=== PATIENT | male | born 1945 | race Caucasian/White ===

== ENCOUNTER → 2018-06-28 | Outpatient (CLI) | payer MEDICARE ==
[2018-06-28 17:15] LABS: HCT 39.5 % (39.0-53.0); HGB 13.1 gm/dL (13.0-17.5); MCH 29.1 pg (25.0-35.0); MCHC 33.1 g/dL (31.0-37.0); MCV 88.1 fL (80.0-100.0); Mean Platelet Volume 7.9; Platelet Count 229 k/uL (150-450); RBC 4.48 m/uL (4.30-5.90); RDW 13.1 % (11.5-15.5); WBC 8.4 k/uL (3.8-10.6)
[2018-06-28 17:22] LABS: INR 1.1 (<1.2); Partial Thromboplastin Time 25.2 sec (22.0-30.0); Prothrombin Time 10.6 sec (9.0-12.0)
[2018-06-28 17:34] LABS: Albumin 4.1 g/dL (3.5-5.0); Appearance,Urine Clear (Clear); Bilirubin,Urine Negative (Negative); Blood,Urine Negative (Negative); Calcium 9.7 mg/dL (8.4-10.2); Color,Urine Yellow; Glucose,Urine (UA) Negative (Negative); Ketones,Urine Negative (Negative); Leukocyte Esterase,Urine Negative (Negative); Nitrite,Urine Negative (Negative); Protein,Urine Negative (Negative); Specific Gravity,Urine 1.013 (1.001-1.035); Total Bilirubin 0.5 mg/dL (0.2-1.3); Total Protein 7.3 g/dL (6.3-8.2); Urobilinogen,Urine <2.0 mg/dL (<2.0)
== END | disposition home or self-care (01) ==
LOC: LABPAT 16:26
PROVIDERS: ATTEND Orthopaedic Surgery
DX: Z01.812 Encounter for preprocedural laboratory examination (principal); Z51.81 Encounter for therapeutic drug level monitoring; Z79.01 Long term (current) use of anticoagulants
CPT/HCPCS: 36415; 80053; 81003; 85027; 85610; 85730; 87070

== ENCOUNTER 2018-07-09 09:32 | Inpatient (IN) | payer MEDICARE ==
[2018-07-02 16:14] VITALS: BMI 30.7
[~2018-07-09 09:32] MED LIST: ACETAMINOPHEN TAB 500 MG TAB PO ONE; DEXAMETHASONE SOD PHOSPHATE 10 MG/ML 1 ML VIAL IV ONE; LACTATED RINGERS 1,000 ML IV SCH; ONDANSETRON 4 MG/2 ML VIAL IVP ONE; TRANEXAMIC ACID 1,000 MG in SODIUM CHLORIDE 0.9% 50 ML IVPB ONE; ceFAZolin IN SWFI 2 GM/20 ML SYRINGE IVP ONE
[2018-07-09] MEDS ORDERED: ROPIVACAINE 246.25 MG, EPINEPHrine 0.5 MG, KETOROLAC 30 MG, cloNIDine HCL/PF 80 MCG, WA... MISCELLANE ONE ×5 (12:54)
[2018-07-09] MEDS ORDERED: LIDOCAINE 1% 20 ML VIAL (10MG/ML) FOR IV START INTRADERMA ONE (13:00)
[2018-07-09] MEDS ORDERED: SODIUM CHLORIDE 0.9% 100 ML BAG ONE (13:36)
[2018-07-09] MEDS ORDERED: fentaNYL (PF) 50 MCG/ML 2 ML AMP ONE (13:36)
[2018-07-09] MEDS ORDERED: GLYCOPYRROLATE 0.2 MG/ML 2 ML VIAL ONE (13:36)
[2018-07-09] MEDS ORDERED: PROPOFOL 10 MG/ML 20 ML VIAL IV ONE (13:36)
[2018-07-09] MEDS ORDERED: TRANEXAMIC ACID 1,000 MG/10 ML VIAL ONE (13:36)
[2018-07-09] MEDS ORDERED: MIDAZOLAM 2 MG/2 ML VIAL ONE (13:36)
[2018-07-09] MEDS ORDERED: ePHEDrine SULFATE/0.9% NACL/PF 50 MG/5 ML SYRINGE IV ONE (13:36)
[2018-07-09] MEDS ORDERED: ceFAZolin 3,000 MG in SODIUM CHLORIDE 0.9% IRRIGATIO 3,000 ML IRRIGATION ONE (14:14)
[2018-07-09] MEDS ORDERED: LACTATED RINGERS 1,000 ML IV ONE (14:14)
[2018-07-09] MEDS ORDERED: HYDROmorphone 1 MG/ML 1 ML SYRINGE IVP PRN ×3 (15:43)
[2018-07-09] MEDS ORDERED: NALOXONE 0.4 MG/ML 1 ML VIAL IV PRN ×2 (15:43→15:50)
[2018-07-09] MEDS ORDERED: NA PHOS,M-B/NA PHOS,DI-BA 133 ML ENEMA RECTAL PRN (15:50)
[2018-07-09] MEDS ORDERED: BISACODYL 10 MG SUPP RECTAL PRN (15:50)
[2018-07-09] MEDS ORDERED: HYDROcodone/APAP 7.5-325MG 1 EACH TAB PO PRN (15:50)
[2018-07-09] MEDS: HYDROmorphone 0.5 MG/0.5 ML SYRINGE IVP PRN ×4 (15:50→16:25)
[2018-07-09] MEDS ORDERED: MAGNESIUM HYDROXIDE 2,400 MG/10 ML CUP PO PRN (15:50)
[2018-07-09] MEDS ORDERED: ONDANSETRON 4 MG/2 ML VIAL IVP PRN (15:50)
--- NOTE | 2018-07-09 16:34 | XR ---
PROCEDURE: XR knee limited RT - 2V DATE AND TIME: 07/09/2018 4:26 PM CLINICAL INDICATION: Evaluation for Postop abnormality and alignment TECHNIQUE: AP, and crosstable lateral views. COMPARISON: None FINDINGS: Post-TKR study, the prosthesis appears normally aligned. No periprosthesis lucency. Postprocedural changes are noted, no unexpected findings.. IMPRESSION: Postoperative.
[2018-07-09 16:36] VITALS: RESP 16
[2018-07-09] MEDS ORDERED: WARFARIN 5 MG TAB PO ONE (18:00)
[2018-07-09] MEDS: LACTATED RINGERS 1,000 ML IV SCH (18:15)
--- NOTE | 2018-07-09 18:18 | P.OP ---
Date of Procedure: 07/09/18 Procedure(s) Performed: PREOPERATIVE DIAGNOSIS: Right knee severe osteoarthritis with genu varum POSTOPERATIVE DIAGNOSIS: Right knee severe osteoarthritis with genu varum OPERATION: Right knee cemented total replacement arthroplasty. ANESTHESIA: Spinal ESTIMATED BLOOD LOSS: 100 ml. RUG HOOKER HAND: Latasha Alvarez PA-C (assistance with: patient positioning, retraction, exposure, hemostasis, leg positioning, implantation, irrigation, closure, dressing) COMPLICATIONS: None apparent. COMPONENTS IMPLANTED: Persona system from [employer] INDICATIONS: Mr. Love is a 73-year-old male with a history of right knee osteoarthritis. The patient's knee is end-stage, and conservative management has failed. The operation of knee replacement has been discussed at length in the office, as well as potential risks and complications. These are inclusive of, but not limited to: bleeding, infection, scarring, discomfort, blood vessel and nerve damage, need for further surgery, failure to relieve symptoms, persistence, recurrence, or worsening of problems, loosening, dislocation, wear , blood clot, pulmonary embolism, , gait dysfunction, stiffness, and other risks as discussed in the office. The patient elects to proceed and the consent form has been signed. PROCEDURE: The patient was taken to the operating room and positioned on the operating room table in the supine position. Anesthesia was initiated. Care was taken to make sure that all pressure points were adequately padded. The operative lower extremity was prepped and draped in the usual aseptic fashion using ChloraPrep. Ioban drape was used for the case and the patient received intravenous antibiotics within one hour of the incision. A pneumotourniquet and leg boyce were used for the case. The limb was exsanguinated with an Esmarch bandage and the tourniquet was inflated to 350 mmHg. Time-out was called confirming the patient's identity, side, procedure and administration of antibiotics and tranexamic acid. The incision was then created midline directly over the knee, carried down through skin and into the subcutaneous tissues and down to fascia. Full thickness subcutaneous medial flap was developed. Medial parapatellar arthrotomy was performed and the interior of the knee was inspected. There was end-stage osteoarthritis of the knee with a mild to moderate genu varum type deformity. The fat pad was excised and proximal medial release on the tibia was completed using meticulous dissection and a curved osteotome. The anterior cruciate ligament was taken down. Note was made of significant attrition of the anterior and significant degenerative appearance of the cruciate ligaments. The exposure was excellent. The knee was flexed 90 degrees and the patella was everted. A spot was chosen on the femur approximately 1 cm anterior to the posterior cruciate ligament insertion and an intramedullary hole was created within the femur. The intramedullary guide was then set to 5 degrees of valgus. The distal cutting block was attached and pinned into position. An appropriate amount of distal femoral resection was set. The oscillating saw was then used to make the distal femoral cut. This cut was confirmed to be flat with the flat end of an osteotome. The retractors were placed around the tibia and the tibial surface was addressed. The angle and depth of resection was adjusted using an extramedullary cutting guide. The guide had a built-in 3 degree posterior slope cut. Once the cutting guide was adjusted appropriately and in line with the axis of the tibia and confirmed to be in good position in relation to the second metatarsal and transmalleolar axis, the tibial cut was then created with protection of the posterior neurovascular structures and the collateral ligaments. The tibial cut surface was removed and sized. Femoral sizing was then accomplished using anterior referencing. Care was taken to analyze the posterior condyles for signs of deficiency or severe wear, and adjustments to the guide were made, as appropriate. 3 degree external rotation pins were placed. The cutting jig for the femur was applied to these pins. The planned cuts were further analyzed prior to performing them with the oscillating saw. No femoral notching was produced. Bone fragments were removed and the cut surfaces were finished, as necessary, with a reciprocating saw. Spacer block technique was then used to confirm that the flexion and extension gaps were equal. Soft tissue releases and adjustment of the tibial and/or femoral cuts were made, as necessary, until the gaps were equal. This included release of the posterior cruciate ligament, which was excessively tight in this patient. The femur was then further finished for a posterior cruciate ligament substituting component. Patellar resurfacing was performed using a reamer. The size of the required patellar component was estimated and the patellar surface was then reamed down to a residual thickness which would recreate the [place] thickness with the component. The exact placement of the patellar component was adjusted for position based on preoperative x-rays and intraoperative findings. Prior to placing trial components, anesthetic solution consisting of ropivicaine with epinephrine, ketorolac, and clonidine was injected carefully and methodically in a grid pattern using aspiration technique into the soft tissue around the knee circumferentially, starting with the deeper tissues first and progressing to fascia, and then finally the skin/subcutaneous tissue. Particular care was taken when injecting the posterior capsule. The trial components were inserted. The tibial tray was allowed to self center and the patella was noted to track very well. The position of the tibial component was marked and the tibia was then finished for a stemmed tibial component. Cement was mixed on the back table and applied to the final components. Trial components were removed and the cut surfaces of the bone were pulse lavaged thoroughly and dried. Cement was then applied to the tibial surface and pressurized into the surface using finger pressurization technique. The tibial component was then applied and excess cement was removed after it was impacted securely and noted to be flush with the cut surface. In similar fashion, the cement was applied to the cut femoral surface, pressurized in using finger pressurization and the component was impacted into place. Excess cement was removed. The polyethylene spacer was then implanted and locked into position. The patellar component was then applied in similar technique and a patellar clamp was used to hold the patella in place as the cement hardened. Once the cement had fully hardened, the knee was reinspected. Any other cement extrusion was removed and final kinematic testing showed range of motion from 0 to 130 degrees with excellent stability, both medially and laterally and appropriate alignment of the leg. Patellar tracking was excellent. The knee was then thoroughly pulse lavaged with normal saline. The tourniquet was deflated and hemostasis was obtained with electrocautery and IV tranexamic acid, 1 g given at the start of the operation and 1 g at the start of closure. Closure was with #2 Ethibond in the fascia/capsule and supplemented with #2 Quill, 2-0 Vicryl suture was used for the subcutaneous tissues and 3-0 Quill for the skin. Dermabond/Steri-Strips were then applied. A lightly compressive dressing was applied using Webril and an [place] wrap. The patient was then transferred to stretcher and taken to the recovery room in stable condition. Sponge and needle counts were correct.
[2018-07-09] MEDS ORDERED: hydrALAZINE HCL 20 MG/ML 1 ML VIAL IVP PRN (20:45)
[2018-07-09] MEDS: ceFAZolin IN SWFI 2 GM/20 ML SYRINGE IVP SCH (20:48)
[2018-07-09] MEDS ORDERED: SENNOSIDES-DOCUSATE SODIUM 1 EACH TAB PO SCH (21:00)
[2018-07-09] MEDS ORDERED: TEMAZEPAM 15 MG CAP PO PRN (22:00)
--- NOTE | 2018-07-09 22:18 | CONS ---
CONSULTATION REASON FOR CONSULTATION: Advice regarding hypertension and other medical issues, requested by Dr. Fuchs. HISTORY OF PRESENT ILLNESS: This 73-year-old gentleman with a past medical history of hypertension, hyperlipidemia, history of DJD, history of psoriatic arthritis, history of MRSA, underwent right total knee joint arthroplasty for severe DJD by Dr. Fuchs. The blood pressure was slightly elevated postoperatively; otherwise there is no chest pain, no palpitations, no headache, loss of consciousness, nausea, vomiting, diarrhea, fever, rigor or chills. PAST MEDICAL HISTORY: 1. Hypertension. 2. Hyperlipidemia. 3. History of DJD. 4. History of GERD. HOME MEDICATIONS: 1. Pravachol 20 mg p.o. daily. 2. Omeprazole 20 mg daily. 3. Multivitamins 1 p.o. daily. 4. Fish oil 1 p.o. daily. 5. Vitamin D3 2000 daily. 6. Ecotrin 81 mg p.o. daily. 7. Humira 40 mg subcutaneously for 14 days. 8. Coumadin 2.5 mg daily. 9. Senokot S one tablet p.o. b.i.d. 10.Olin 7.5 q.6 p.r.n. ALLERGIES: NONE. FAMILY HISTORY: No history of heart disease or strokes in the family. SOCIAL HISTORY: Previous history of smoking. No current smoking or alcohol intake. REVIEW OF SYSTEMS: ENT: No diminished hearing. No diminished vision. CARDIOVASCULAR SYSTEM: No angina, palpitations. RESPIRATORY SYSTEM: As mentioned earlier. GI: No nausea, vomiting. : No dysuria or retention. NERVOUS SYSTEM: No numbness, weakness. ALLERGY/IMMUNOLOGY: No asthma, hayfever. MUSCULOSKELETAL: As mentioned earlier. HEMATOLOGY/ONCOLOGY: No history of anemia. ENDOCRINE: No history of diabetes, hypothyroidism. CONSTITUTIONAL: As mentioned earlier. DERMATOLOGY: Negative. RHEUMATOLOGY: Negative. PSYCHIATRY: As mentioned earlier. PHYSICAL EXAMINATION: Patient is alert and oriented x3. Pulse 63, blood pressure 140/71, respirations 16, temperature normal, pulse ox 94% on 3 L. HEENT: Conjunctivae normal. Oral mucosa moist. NECK: No jugular venous distention. No carotid bruit. No lymph node enlargement. CARDIOVASCULAR SYSTEM: S1, S2 muffled. RESPIRATORY SYSTEM: Breath sounds diminished at the bases. No rhonchi. No crackles. ABDOMEN: Soft, non-tender. LEGS: Status post right knee arthroplasty. NERVOUS SYSTEM: No focal deficit. LABS: The preoperative labs are normal. Other labs are not available. ASSESSMENT: 1. Status post right total knee joint arthroplasty. 2. History of gastroesophageal reflux disease. 3. Hypertension. 4. Hyperlipidemia. 5. Psoriatic arthropathy. 6. History of methicillin-resistant Staphylococcus aeruginosa. 7. History of back surgery. 8. Degenerative joint disease. RECOMMENDATIONS AND DISCUSSION: In this 73-year-old gentleman with a past medical history of multiple medical problems, we will monitor the patient closely, continue the current medications, continue with symptomatic treatment. Otherwise at this time I would recommend resuming the home medications. Monitor blood pressure closely. Incentive spirometry. DVT prophylaxis. We will follow the patient closely with you. Thank you, Dr. Fuchs, for letting us participate in the care of this patient. Home medications are reviewed and ordered. MMODL / IJN: [id number] /
[2018-07-10] MEDS: HYDROcodone/APAP 7.5-325MG 1 EACH TAB PO PRN ×2 (01:19→12:16)
[2018-07-10] MEDS: LACTATED RINGERS 1,000 ML IV SCH ×2 (04:57→08:16)
[2018-07-10] MEDS: ceFAZolin IN SWFI 2 GM/20 ML SYRINGE IVP SCH (04:57)
[2018-07-10 07:30] LABS: Basophils % (A) 0 %; Eosinophils % (A) 0 %; HCT 35.9 % (39.0-53.0); HGB 11.9 gm/dL (13.0-17.5); Lymphocytes # (A) 1.4 k/uL (1.0-4.8); Lymphocytes % (A) 11 %; MCH 29.2 pg (25.0-35.0); MCHC 33.2 g/dL (31.0-37.0); MCV 88.2 fL (80.0-100.0); Mean Platelet Volume 8.5; Monocytes # (A) 0.8 k/uL (0-1.0); Monocytes % (A) 6 %; Neutrophils # (A) 10.4 k/uL (1.3-7.7); Neutrophils % (A) 81 %; Platelet Count 188 k/uL (150-450); RBC 4.07 m/uL (4.30-5.90); RDW 13.1 % (11.5-15.5); WBC 12.8 k/uL (3.8-10.6)
[2018-07-10] MEDS ORDERED: PANTOPRAZOLE 40 MG TABLET PO SCH (07:30)
[2018-07-10 07:39] LABS: INR 1.2 (<1.2); Prothrombin Time 11.2 sec (9.0-12.0)
[2018-07-10] MEDS ORDERED: PRAVASTATIN SODIUM 20 MG TAB PO SCH (09:00)
[2018-07-10] MEDS ORDERED: CHOLECALCIFEROL 1,000 UNIT TAB PO SCH (09:00)
[2018-07-10] MEDS ORDERED: ASPIRIN 81 MG PO SCH (09:00)
[2018-07-10] MEDS ORDERED: LOSARTAN 50 MG TAB PO SCH (09:00)
--- NOTE | 2018-07-10 11:43 | P.DS ---
Providers Date of admission: 07/09/18 11:49 Expected date of discharge: 07/10/18 Attending physician: Mando Fuchs Consults: 07/09/18 15:50 Consult Physician Routine Consulting Provider: Antoine Green Consult Reason/Comments: Medical management Do you want consulting provider notified?: Yes Primary care physician: Nemesio Clemens - Discharge Diagnosis(es) (1) Osteoarthritis of right knee Current Visit: Yes Status: Acute (2) Status post total right knee replacement Current Visit: Yes Status: Acute Hospital Course: This is a 73-year-old male who was last seen with complaint of continued right knee pain. The patient has a known history of degenerative arthritis of the right knee and presents to discuss surgical options. After discussion and consideration the patient elects to proceed with total right knee arthroplasty. The patient is seen preoperatively by his primary care physician and cleared for surgery. The patient is admitted to [facility] for total right knee arthroplasty. The procedures performed without complication or sequelae. Patient is doing well postoperatively. Vital signs are stable at discharge. Labs are stable at discharge. the patient is ambulating well with walker with minimal assistance. The patient is discharged to home on postop day #1 pending medical clearance. Please see orders and refer to the med rec for accurate list of medications. Patient Condition at Discharge: Good Plan - Discharge Summary Discharge Rx Participant: No New Discharge Prescriptions: New HYDROcodone/APAP 7.5-325MG [[place] 7.5-325] 1 - 2 tab PO Q4-6H PRN #84 tab PRN Reason: Pain Sennosides-Docusate Sodium [Senokot-S] 1 tab PO BID #60 tablet Warfarin [Coumadin] 2.5 mg PO DAILY #1 tab No Action Cholecalciferol [Vitamin D3] 2,000 unit PO DAILY Pravastatin Sodium [Pravachol] 20 mg PO DAILY Losartan [Cozaar] 50 mg PO DAILY Omeprazole 20 mg PO DAILY Multivit-Min/FA/Lycopen/Lutein [Centrum Silver Men Tablet] 1 tab PO DAILY Fish Oil/Dha/Epa [Fish Oil 1,200 mg Fish Oil] 1 cap PO DAILY Aspirin [Adult Low Dose Aspirin EC] 81 mg PO DAILY Adalimumab [Humira Pen Crohn-Uc-Hs Starter] 40 mg SQ Q14D Discharge Medication List Adalimumab [Humira Pen Crohn-Uc-Hs Starter] 40 mg SQ Q14D 07/02/18 [History] Aspirin [Adult Low Dose Aspirin EC] 81 mg PO DAILY 07/02/18 [History] Cholecalciferol [Vitamin D3] 2,000 unit PO DAILY 07/02/18 [History] Fish Oil/Dha/Epa [Fish Oil 1,200 mg Fish Oil] 1 cap PO DAILY 07/02/18 [History] Losartan [Cozaar] 50 mg PO DAILY 07/02/18 [History] Multivit-Min/FA/Lycopen/Lutein [Centrum Silver Men Tablet] 1 tab PO DAILY [History] Omeprazole 20 mg PO DAILY 07/02/18 [History] Pravastatin Sodium [Pravachol] 20 mg PO DAILY 07/02/18 [History] HYDROcodone/APAP 7.5-325MG [[place] 7.5-325] 1 - 2 tab PO Q4-6H PRN #84 tab [Rx] Sennosides-Docusate Sodium [Senokot-S] 1 tab PO BID #60 tablet 07/09/18 [Rx] Warfarin [Coumadin] 2.5 mg PO DAILY #1 tab 07/09/18 [Rx] Follow up Appointment(s)/Referral(s): Latasha Alvarez, KAROLYN [PHYSICIAN WINE MASTER] - 07/23/18 1:30 pm [facility] Visiting Nurse, [NON-STAFF] - Ambulatory/Diagnostic Orders: Continuous Passive Motion (CPM) Machine [DME.AMB1] Time Frame: 3 Weeks, Facility : [facility], Location: Case Management Prothrombin Time INR [LAB.AMB] Location: None Selected Activity/Diet/Wound Care/Special Instructions: May shower if no drainage. WBAT w walker. CPM 5-6h daily. Discharge Disposition: HOME WITH HOME HEALTH SERVICES
[2018-07-10] MEDS ORDERED: MULTIVITAMINS, THERA 1 EACH TAB PO SCH (12:00)
[2018-07-10 14:22] VITALS: BP 161/66; PULSE 56; TEMP 97
[2018-07-10] MEDS ORDERED: WARFARIN 5 MG TAB PO ONE (18:00)
== END 2018-07-10 15:00 | disposition home health service (06) | DRG 470 ==
LOC: 2ORMAIN 11:49 → 3SUR 17:58
PROVIDERS: ADMIT Orthopaedic Surgery; ATTEND Orthopaedic Surgery
PROC: 0SRC0J9 Replacement of Right Knee Joint with Synthetic Substitute, Cemented, Open Approach (ICD-10-PCS; principal; 2018-07-09 13:45)
DX: M17.11 Unilateral primary osteoarthritis, right knee (principal); M21.169 Varus deformity, not elsewhere classified, unspecified knee; E78.5 Hyperlipidemia, unspecified; I10 Essential (primary) hypertension; K21.9 Gastro-esophageal reflux disease without esophagitis; L40.50 Arthropathic psoriasis, unspecified; Z79.01 Long term (current) use of anticoagulants; Z79.899 Other long term (current) drug therapy; Z86.14 Personal history of Methicillin resistant Staphylococcus aureus infection; Z87.891 Personal history of nicotine dependence
CPT/HCPCS: 85025; 85610; 88300

== ENCOUNTER → 2019-10-12 | Outpatient (CLI) | payer MEDICARE ==
--- NOTE | 2019-10-12 08:05 | MR ---
EXAMINATION TYPE: MR cervical spine wo con DATE OF EXAM ORDERED: 10/12/2019 7:40 AM HISTORY: M20.123. TECHNOLOGIST HISTORY AT TIME OF EXAM: Aleksander finger stiffness x 1 year COMPARISON: None. TECHNIQUE: Multiplanar, multiecho imaging of the cervical spine was obtained without contrast on a 1 .5 carlos enrique magnet. FINDINGS: Prevertebral soft tissues are normal. Vertebral body height and alignment are maintained. Atlantoaxial relationships are normal. There is a normal craniocervical junction. Cord signal is normal. At C2-C3, there is tiny central disc displacement. Intervertebral foramina are well maintained. There is mild facet arthropathy. There is mild uncovertebral joint disease. At C3-C4, there is disc space loss. There is bilateral intervertebral foraminal narrowing, greater on the right than the left. There is no significant compressive discopathy. There is uncovertebral join t disease. The facets are unremarkable. At C4-C5, there is mild disc space loss and disc desiccation. There is bilateral intervertebral julieta inal narrowing, greater on the right than the left. There is a tiny mixed spondylitic bar present pos teriorly. There is facet arthropathy and uncovertebral joint disease. At C5-C6, there is disc space loss and disc desiccation. There is severe, bilateral intervertebral fo raminal narrowing. There is a mixed spondylitic bar present posteriorly effacing but not deforming th e thecal sac. There is uncovertebral and facet arthropathy. At C6-C7, there is disc space loss and disc desiccation. There is a prominent mixed spondylitic bar p resent posteriorly deforming the thecal sac without definite cord contact. There is bilateral interve rtebral foraminal narrowing. There is facet arthropathy and uncovertebral joint disease. At C7-T1, the intervertebral foramina are reasonably well-maintained. There is disc space loss and di sc desiccation. There is a diffuse disc displacement. There is mild facet arthropathy and uncovertebr al joint disease. IMPRESSION: 1. DIFFUSE DEGENERATIVE DISC DISEASE. 2. MULTILEVEL INTERVERTEBRAL FORAMINAL NARROWING. 3. 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
== END | disposition home or self-care (01) ==
LOC: RADMRIMAIN 07:09
PROVIDERS: ATTEND Psychiatry & Neurology Neurology
DX: M48.02 Spinal stenosis, cervical region (principal); M50.30 Other cervical disc degeneration, unspecified cervical region; M47.22 Other spondylosis with radiculopathy, cervical region
CPT/HCPCS: 72141

== ENCOUNTER → 2020-07-17 | Outpatient (CLI) | payer MEDICARE ==
--- NOTE | 2020-07-17 12:24 | US ---
EXAMINATION TYPE: US carotid duplex BILAT DATE OF EXAM: 07/17/2020 COMPARISON: NONE CLINICAL HISTORY: H34.9 Unspecified retinal vascular occlusion. Plaque seen in eyes per patient. No H TN. EXAM MEASUREMENTS: RIGHT: Peak Systolic Velocity (PSV) cm/sec ----- Right CCA: 78.9 ----- Right ICA: 91.8 ----- Right ECA: 208.0 ICA/CCA ratio: 1.2 RIGHT: End Diastole cm/sec ----- Right CCA: 0.0 ----- Right ICA: 12.6 ----- Right ECA: 14.7 LEFT: Peak Systolic Velocity (PSV) cm/sec ----- Left CCA: 95.0 ----- Left ICA: 130.0 ----- Left ECA: 256.0 ICA/CCA ratio: 1.4 LEFT: End Diastole cm/sec ----- Left CCA: 16.1 ----- Left ICA: 21.5 ----- Left ECA: 0.0 VERTEBRALS (direction of flow): Right Vertebral: Antegrade Left Vertebral: Antegrade Rhythm: Normal Plaque seen in bilateral bulbs. Elevated bilateral bulbs and slightly elevated distal ICA velocities . No significant stenosis. Slight bilateral wall thickening. IMPRESSION: 1. Atheromatous plaquing with elevated velocities within the internal and external carotid artery com patible with moderate left internal carotid artery narrowing between 50 and 69% greater than 70% narr owing within the left external carotid artery. 2. Hard plaquing limiting evaluation of the right internal carotid artery. No stenosis based on veloc ity is evident. Criteria for Assigning % of Stenosis / Diameter reduction (Estimation based on the indirect measurements of the internal carotid artery velocities (ICA PSV). 1. Normal (no stenosis)=ICA PSV < 125 cm/s: ratio < 2.0: ICA EDV<40 cm/s. 2. Less than 50% stenosis=ICA PSV < 125 cm/s: ratio < 2.0: ICA EDV<40 cm/s. 3. 50 to 69% stenosis=ICA PSV of 125 to 230 cm/s: ration 2.0 ? 4.0: ICA EDV 40-100 cm/s. 4. Greater than 70% stenosis to near occlusion= ICA PSV > 230 cm/s: ratio > 4.0: ICA EDV > 100 cm/s. 5. Near occlusion= ICA PSV velocities may be low or undetectable: variable ratio and ICA EDV. 6. Total occlusion=unable to detect flow.
--- NOTE | 2020-07-17 13:00 | ECHOF ---
Referral Reason:R07.9 chest pain MEASUREMENTS -------- HEIGHT: 182.9 cm WEIGHT: 103.0 kg BP: RVIDd: 4.4 cm (< 3.3) IVSd: 1.7 cm (0.6 - 1.1) LVIDd: 5.1 cm (3.9 - 5.3) LVPWd: 1.4 cm (0.6 - 1.1) IVSs: 1.9 cm LVIDs: 3.4 cm LVPWs: 2.0 cm LAESV Index (A-L): 34.04 ml/m Ao Diam: 4.0 cm (2.0 - 3.7) AV Cusp: 2.0 cm (1.5 - 2.6) MV EXCURSION: 24.649 mm (> 18.000) MV EF SLOPE: 49 mm/s (70 - 150) EPSS: 1.0 cm MV E Lamien: 1.10 m/s MV DecT: 215 ms MV A Lamine: 0.84 m/s MV E/A Ratio: 1.31 FINDINGS -------- This was a technically adequate study. The left ventricular size is normal. There is moderate concentric left ventricular hypertrophy. O verall left ventricular systolic function is normal with, an EF between 55 - 60 %. The diastolic fi lling pattern is normal for the age of the patient 17.25. The right ventricle is moderately enlarged. LA is midly dilated 29-33ml/m2. The right atrium is mildly enlarged. Interatrial and interventricular septum intact. The aortic valve is trileaflet and appears structurally normal. There is no evidence of aortic regu rgitation. There is no evidence of aortic stenosis. Mild mitral regurgitation is present. Mild tricuspid regurgitation present. There is no evidence of pulmonary hypertension. The right v entricular systolic pressure, as measured by Doppler, is {RVSP}. There is no pulmonic regurgitation present. The aortic root size is normal. Normal inferior vena cava with normal inspiratory collapse consistent with estimated right atrial pre ssure of 5 mmHg. IVC Not well visulized. There is no pericardial effusion. CONCLUSIONS -------- 1. The left ventricular size is normal. 2. There is moderate concentric left ventricular hypertrophy. 3. Overall left ventricular systolic function is normal with, an EF between 55 - 60 %. 4. The diastolic filling pattern is normal for the age of the patient 17.25 5. The right ventricle is moderately enlarged. 6. LA is midly dilated 29-33ml/m2. 7. The right atrium is mildly enlarged. 8. Mild mitral regurgitation is present. 9. Mild tricuspid regurgitation present. FORESTRY PILOT: Pema Lazo RDCS
== END | disposition home or self-care (01) ==
LOC: RADUSWWP 10:46
PROVIDERS: ATTEND Internal Medicine
DX: I65.22 Occlusion and stenosis of left carotid artery (principal); I08.1 Rheumatic disorders of both mitral and tricuspid valves
CPT/HCPCS: 93306; 93880

== ENCOUNTER 2020-08-26 08:44 | Day surgery (SDC) | payer MEDICARE ==
[2020-08-25 08:31] VITALS: BMI 30.7
[~2020-08-26 08:44] MED LIST changes: -ACETAMINOPHEN TAB 500 MG TAB PO ONE; -DEXAMETHASONE SOD PHOSPHATE 10 MG/ML 1 ML VIAL IV ONE; -ONDANSETRON 4 MG/2 ML VIAL IVP ONE; -TRANEXAMIC ACID 1,000 MG in SODIUM CHLORIDE 0.9% 50 ML IVPB ONE; -ceFAZolin IN SWFI 2 GM/20 ML SYRINGE IVP ONE
[2020-08-26] MEDS ORDERED: LACTATED RINGERS 1,000 ML IV ONE (09:02)
[2020-08-26 09:17] VITALS: TEMP 97.6
[2020-08-26] MEDS ORDERED: LIDOCAINE 1% INJ 10MG/ML (20 ML MDV) ONE (09:43)
[2020-08-26] MEDS ORDERED: PROPOFOL 10 MG/ML 20 ML VIAL IV ONE (09:43)
--- NOTE | 2020-08-26 10:08 | P.PCN ---
Date of Procedure: 08/26/20 Procedure(s) Performed: Brief history: Patient is a pleasant 75-year-old white male scheduled for an elective upper endoscopy as well as colonoscopy as a part of evaluation of history of GERD and screening for colorectal neoplasia. Last colonoscopy was more than 10 years ago. Procedure performed: Esophagogastroduodenoscopy biopsy Colonoscopy Preoperative diagnosis: GERD Screening for colon cancer Anesthesia: MAC Procedure: After informed consent was obtained from the patient was brought into the e ndoscopy unit and IV sedation was administered by anesthesia under continuous monitoring. Initially upper endoscopy was done. The Olympus GF 160 video endoscope was inserted inserted into the mouth and esophagus intubated without any difficulty and was gradually advanced into the stomach and duodenum and carefully examined. The bulb and second part of the duodenum appeared normal. The scope was then withdrawn into the stomach adequately insufflated with air and upon careful examination the antrum and body, cardia and fundus appeared normal. Olympus small gastric polyps were seen which were biopsied. The scope was then withdrawn into the esophagus. The GE junction was located at 43 cm to the incisors. It appeared regular with no erythema erosions or ulcerations. There was a 5 mm tongue of Pinedo's appearing mucosa proximal to the GE junction which was biopsied. Rest of the esophagus appeared normal. Patient tolerated the procedure well. At this time the patient continued to remain sedation. Initial digital rectal examination was normal. Olympus CF 160 video colonoscope was then inserted into the rectum and gradually advanced to the cecum without any difficulty. Careful examination was performed as the scope was gradually being withdrawn. The prep was excellent. The cecum, ascending colon, appeared normal. The hepatic flexure there was a 1 cm broad-based polyp removed by snare polypectomy. Scattered left sided diverticulosis seen. Rest of the transverse colon, descending colon, sigmoid colon and rectum appeared normal. Retroflexion was performed in the rectum and no lesions were noted. Patient tolerated the procedure well. Impression: 1. Upper endoscopy revealed small gastric polyps and short segment Pinedo's esophagus. 2. Colonoscopy revealed 1 cm hepatic flexure polyp and scattered sigmoid diverticulosis Recommendations: Findings of this examination were discussed with the patient as well as a family. He was advised to follow with the biopsy results. If the biopsy shows an adenoma he can have a repeat colonoscopy in 3-5 years
[2020-08-26 10:39] VITALS: BP 124/60; PULSE 51; RESP 16
== END 2020-08-26 10:54 | disposition home or self-care (01) ==
LOC: ORWHC2ENDO 08:44
PROVIDERS: ATTEND Internal Medicine Gastroenterology
DX: Z12.11 Encounter for screening for malignant neoplasm of colon (principal); D12.3 Benign neoplasm of transverse colon; K57.30 Diverticulosis of large intestine without perforation or abscess without bleeding; K22.70 Barrett's esophagus without dysplasia; K31.7 Polyp of stomach and duodenum; K29.50 Unspecified chronic gastritis without bleeding; K21.9 Gastro-esophageal reflux disease without esophagitis; I10 Essential (primary) hypertension; E78.5 Hyperlipidemia, unspecified; Z98.890 Other specified postprocedural states; Z97.2 Presence of dental prosthetic device (complete) (partial); Z79.899 Other long term (current) drug therapy; Z79.82 Long term (current) use of aspirin
CPT/HCPCS: 88305; 45385; 43239; J2001; J2704

== ENCOUNTER 2021-06-01 11:47 | Emergency (ER) | payer MEDICARE ==
--- NOTE | 2021-06-01 12:32 | ED ---
General Adult HPI - General Stated complaint: Weakness Time Seen by Provider: 06/01/21 11:52 Source: patient, EMS, RN notes reviewed, old records reviewed Mode of arrival: EMS - History of Present Illness Initial comments: 76-year-old male presenting for evaluation of generalized weakness and fatigue. Symptoms have been ongoing for several months. He was urged to come to the emergency department by his shoulder. He states that he had coronavirus in January of this year and has not felt 100% since that time. He did receive monoclonal antibody testing. He denies chest pain or dyspnea. He reports a mild or cyst and dry cough. No fever or chills. No abdominal pain. No nausea vomiting. No headache. No focal numbness or weakness. No lower extremity pain or swelling. - Related Data Home Medications Medication Instructions Recorded Confirmed Adalimumab [Humira Pen 40 mg SQ Q14D 07/02/18 06/01/21 Crohn's-Uc-Hs] Aspirin [Adult Low Dose Aspirin EC] 81 mg PO DAILY 07/02/18 06/01/21 Cholecalciferol [Vitamin D3 (25 2,000 unit PO DAILY 07/02/18 06/01/21 Mcg = 1000 Iu)] Omeprazole 20 mg PO DAILY 07/02/18 06/01/21 Pravastatin Sodium [Pravachol] 20 mg PO DAILY 07/02/18 06/01/21 Multivit-Min/FA/Lycopen/Lutein 1 tab PO DAILY 08/25/20 06/01/21 [Centrum Silver Tablet] [place]-3 Fatty Acids/Fish Oil [Fish 2 cap PO DAILY 08/25/20 06/01/21 Oil 1,000 mg Softgel] Folic Acid 1 mg PO DAILY 06/01/21 06/01/21 Losartan Potassium 100 mg PO DAILY 06/01/21 06/01/21 Methotrexate 50mg/2ml 25 mg SQ WE 06/01/21 06/01/21 Zinc 50 mg PO DAILY 06/01/21 06/01/21 amLODIPine [Norvasc] 5 mg PO DAILY 06/01/21 06/01/21 Previous Rx's Medication Instructions Recorded Azithromycin [Zithromax Z-pack] 0 mg PO DIRECTED #6 tab 06/01/21 Allergies Allergy/AdvReac Type Severity Reaction Status Date / Time No Known Allergies Allergy Verified 06/01/21 13:42 Review of Systems ROS Statement: Those systems with pertinent positive or pertinent negative responses have been documented in the HPI. ROS Other: All systems not noted in ROS Statement are negative. Past Medical History Past Medical History: Cancer, GERD/Reflux, Hyperlipidemia, Hypertension, Osteoarthritis (OA) Additional Past Medical History / Comment(s): PSORIATIC ARTHRITIS, SKIN CANCER, STATES HX OF BOILS WITH MRSA. History of Any Multi-Drug Resistant Organisms: MRSA Date of last positivie culture/infection: 03/2018 MDRO Source:: [place] Past Surgical History: Back Surgery, Joint Replacement, Orthopedic Surgery Additional Past Surgical History / Comment(s): ORIF LT ANKLE, TOTAL RIGHT KNEE. COLONOSCOPY Past Anesthesia/Blood Transfusion Reactions: No Reported Reaction Past Psychological History: No Psychological Hx Reported Smoking Status: Former smoker Past Alcohol Use History: Occasional Additional Past Alcohol Use History / Comment(s): QUIT SMOKING 20 YRS AGO, SMOKED2 PPD Past Drug Use History: None Reported - Past Family History Mother Family Medical History: No Reported History General Exam General appearance: alert, in no apparent distress Head exam: Present: atraumatic, normocephalic Eye exam: Present: normal appearance, PERRL ENT exam: Present: normal exam Neck exam: Present: normal inspection. Absent: tenderness, meningismus Respiratory exam: Present: normal lung sounds bilaterally. Absent: respiratory distress Cardiovascular Exam: Present: regular rate, normal rhythm GI/Abdominal exam: Present: soft. Absent: distended, tenderness, guarding Extremities exam: Present: normal inspection, normal capillary refill. Absent: pedal edema Neurological exam: Present: alert, oriented X3, CN II-XII intact. Absent: motor sensory deficit Psychiatric exam: Present: normal affect, normal mood Skin exam: Present: warm, dry, intact. Absent: cyanosis, diaphoretic Course Vital Signs 06/01/21 11:52 Temperature 98.8 F Pulse Rate 69 Respiratory 15 Rate Blood Pressure 128/62 O2 Sat by Pulse 97 Oximetry EKG Findings - EKG Comments: EKG Findings:: EKG: Sinus rhythm with PAC, left axis, right bundle-branch block, rate of 76, SC interval 208, QRS duration 156, QTC 472, no ST segment elevation. Medical Decision Making - Medical Decision Making 76-year-old male with dry cough, weakness and fatigue over the past several months. He did have coronavirus in January. Patient well-appearing with stable vitals. Lungs are clear. Chest x-ray does show increased lung markings, suggestive of possible atypical pneumonia. There was some concern for pulmonary embolism, CT angiography was performed which was negative for PE but inc identally did show a 4 cm descending thoracic aortic aneurysm which will require surveillance. Coronavirus testing is negative. Patient has a stable CBC, normal CMP, negative urinalysis, negative coronavirus testing. We did discuss the findings with the patient including the ascending thoracic aortic aneurysm. Patient will likely require further outpatient evaluation, did recommend echocardiogram. Return parameters discussed. - Lab Data Result diagrams: 06/01/21 12:18 06/01/21 12:18 Lab Results 06/01/21 06/01/21 06/01/21 Range/Units 12:18 12:18 12:18 WBC 10.2 (3.8-10.6) k/uL RBC 3.80 L (4.30-5.90) m/uL Hgb 11.6 L (13.0-17.5) gm/dL Hct 33.6 L (39.0-53.0) % MCV 88.5 (80.0-100.0) fL MCH 30.5 (25.0-35.0) pg MCHC 34.5 (31.0-37.0) g/dL RDW 15.0 (11.5-15.5) % Plt Count 249 (150-450) k/uL MPV 7.5 Neutrophils % 73 % Lymphocytes % 16 % Monocytes % 7 % Eosinophils % 0 % Basophils % 0 % Neutrophils # 7.4 (1.3-7.7) k/uL Lymphocytes # 1.7 (1.0-4.8) k/uL Monocytes # 0.7 (0-1.0) k/uL Eosinophils # 0.0 (0-0.7) k/uL Basophils # 0.0 (0-0.2) k/uL PT 11.3 (9.0-12.0) sec INR 1.1 (<1.2) APTT 23.2 (22.0-30.0) sec Sodium (137-145) mmol/L Potassium (3.5-5.1) mmol/L Chloride (98-107) mmol/L Carbon Dioxide (22-30) mmol/L Anion Gap mmol/L BUN (9-20) mg/dL Creatinine (0.66-1.25) mg/dL Est GFR (CKD-EPI)AfAm (>60 ml/min/1.73 sqM) Est GFR (CKD-EPI)NonAf (>60 ml/min/1.73 sqM) Glucose (74-99) mg/dL Plasma Lactic Acid Behzad (0.7-2.0) mmol/L Calcium (8.4-10.2) mg/dL Magnesium (1.6-2.3) mg/dL Total Bilirubin (0.2-1.3) mg/dL AST (17-59) U/L ALT (4-49) U/L Alkaline Phosphatase (38-126) U/L Troponin I (0.000-0.034) ng/mL Total Protein (6.3-8.2) g/dL Albumin (3.5-5.0) g/dL Urine Color Light Yellow Urine Appearance Clear (Clear) Urine pH 7.0 (5.0-8.0) Ur Specific [employer] 1.004 (1.001-1.035) Urine Protein Negative (Negative) Urine Glucose (UA) Negative (Negative) Urine Ketones Negative (Negative) Urine Blood Small H (Negative) Urine Nitrite Negative (Negative) Urine Bilirubin Negative (Negative) Urine Urobilinogen <2.0 (<2.0) mg/dL Ur Leukocyte Esterase Negative (Negative) Urine RBC 5 (0-5) /hpf Urine WBC 1 (0-5) /hpf Coronavirus (PCR) (Not Detectd) 06/01/21 06/01/21 06/01/21 Range/Units 12:18 12:18 12:18 WBC (3.8-10.6) k/uL RBC (4.30-5.90) m/uL Hgb (13.0-17.5) gm/dL Hct (39.0-53.0) % MCV (80.0-100.0) fL MCH (25.0-35.0) pg MCHC (31.0-37.0) g/dL RDW (11.5-15.5) % Plt Count (150-450) k/uL MPV Neutrophils % % Lymphocytes % % Monocytes % % Eosinophils % % Basophils % % Neutrophils # (1.3-7.7) k/uL Lymphocytes # (1.0-4.8) k/uL Monocytes # (0-1.0) k/uL Eosinophils # (0-0.7) k/uL Basophils # (0-0.2) k/uL PT (9.0-12.0) sec INR (<1.2) APTT (22.0-30.0) sec Sodium 134 L (137-145) mmol/L Potassium 4.4 (3.5-5.1) mmol/L Chloride 102 (98-107) mmol/L Carbon Dioxide 25 (22-30) mmol/L Anion Gap 7 mmol/L BUN 11 (9-20) mg/dL Creatinine 0.84 (0.66-1.25) mg/dL Est GFR (CKD-EPI)AfAm >90 (>60 ml/min/1.73 sqM) Est GFR (CKD-EPI)NonAf 84 (>60 ml/min/1.73 sqM) Glucose 110 H (74-99) mg/dL Plasma Lactic Acid Behzad 0.9 (0.7-2.0) mmol/L Calcium 8.6 (8.4-10.2) mg/dL Magnesium 2.0 (1.6-2.3) mg/dL Total Bilirubin 0.8 (0.2-1.3) mg/dL AST 25 (17-59) U/L ALT 16 (4-49) U/L Alkaline Phosphatase 72 (38-126) U/L Troponin I <0.012 (0.000-0.034) ng/mL Total Protein 6.5 (6.3-8.2) g/dL Albumin 3.5 (3.5-5.0) g/dL Urine Color Urine Appearance (Clear) Urine pH (5.0-8.0) Ur Specific [employer] (1.001-1.035) Urine Protein (Negative) Urine Glucose (UA) (Negative) Urine Ketones (Negative) Urine Blood (Negative) Urine Nitrite (Negative) Urine Bilirubin (Negative) Urine Urobilinogen (<2.0) mg/dL Ur Leukocyte Esterase (Negative) Urine RBC (0-5) /hpf Urine WBC (0-5) /hpf Coronavirus (PCR) (Not Detectd) 06/01/21 Range/Units 13:47 WBC (3.8-10.6) k/uL RBC (4.30-5.90) m/uL Hgb (13.0-17.5) gm/dL Hct (39.0-53.0) % MCV (80.0-100.0) fL MCH (25.0-35.0) pg MCHC (31.0-37.0) g/dL RDW (11.5-15.5) % Plt Count (150-450) k/uL MPV Neutrophils % % Lymphocytes % % Monocytes % % Eosinophils % % Basophils % % Neutrophils # (1.3-7.7) k/uL Lymphocytes # (1.0-4.8) k/uL Monocytes # (0-1.0) k/uL Eosinophils # (0-0.7) k/uL Basophils # (0-0.2) k/uL PT (9.0-12.0) sec INR (<1.2) APTT (22.0-30.0) sec Sodium (137-145) mmol/L Potassium (3.5-5.1) mmol/L Chloride (98-107) mmol/L Carbon Dioxide (22-30) mmol/L Anion Gap mmol/L BUN (9-20) mg/dL Creatinine (0.66-1.25) mg/dL Est GFR (CKD-EPI)AfAm (>60 ml/min/1.73 sqM) Est GFR (CKD-EPI)NonAf (>60 ml/min/1.73 sqM) Glucose (74-99) mg/dL Plasma Lactic Acid Bezhad (0.7-2.0) mmol/L Calcium (8.4-10.2) mg/dL Magnesium (1.6-2.3) mg/dL Total Bilirubin (0.2-1.3) mg/dL AST (17-59) U/L ALT (4-49) U/L Alkaline Phosphatase (38-126) U/L Troponin I (0.000-0.034) ng/mL Total Protein (6.3-8.2) g/dL Albumin (3.5-5.0) g/dL Urine Color Urine Appearance (Clear) Urine pH (5.0-8.0) Ur Specific [employer] (1.001-1.035) Urine Protein (Negative) Urine Glucose (UA) (Negative) Urine Ketones (Negative) Urine Blood (Negative) Urine Nitrite (Negative) Urine Bilirubin (Negative) Urine Urobilinogen (<2.0) mg/dL Ur Leukocyte Esterase (Negative) Urine RBC (0-5) /hpf Urine WBC (0-5) /hpf Coronavirus (PCR) Not Detected (Not Detectd) Disposition Clinical Impression: Thoracic ascending aortic aneurysm, Atypical pneumonia Disposition: HOME SELF-CARE Condition: Good Instructions (If sedation given, give patient instructions): Pneumonia (ED) Additional Instructions: Please take antibiotics as prescribed. Please follow up with her primary care physician. There was a descending thoracic aortic aneurysm measuring 4 cm which was found on CT imaging and this will require outpatient follow-up. Prescriptions: Azithromycin [Zithromax Z-pack] 0 mg PO DIRECTED #6 tab Is patient prescribed a controlled substance at d/c from ED?: No Referrals: Cassidy Naqvi MD [Primary Care Provider] - 1-2 days Tomy Ro MD [STAFF PHYSICIAN] - 1-2 days Time of Disposition: 14:54
[2021-06-01 12:36] LABS: INR 1.1 (<1.2); Partial Thromboplastin Time 23.2 sec (22.0-30.0); Prothrombin Time 11.3 sec (9.0-12.0)
[2021-06-01 12:45] LABS: ALT 16 U/L (4-49); AST 25 U/L (17-59); African American GFR (CKD) >90 (>60 ml/min/1.73 sqM); Albumin 3.5 g/dL (3.5-5.0); Alkaline Phosphatase 72 U/L (38-126); Anion Gap 7 mmol/L; Blood Urea Nitrogen 11 mg/dL (9-20); Calcium 8.6 mg/dL (8.4-10.2); Carbon Dioxide 25 mmol/L (22-30); Chloride 102 mmol/L (98-107); Glucose 110 mg/dL (74-99); Non-African American GFR(CKD) 84 (>60 ml/min/1.73 sqM); Potassium 4.4 mmol/L (3.5-5.1); Sodium 134 mmol/L (137-145); Total Bilirubin 0.8 mg/dL (0.2-1.3); Total Protein 6.5 g/dL (6.3-8.2)
[2021-06-01 12:46] LABS: Appearance,Urine Clear (Clear); Bilirubin,Urine Negative (Negative); Blood,Urine Small (Negative); Color,Urine Light Yellow; Glucose,Urine (UA) Negative (Negative); Ketones,Urine Negative (Negative); Leukocyte Esterase,Urine Negative (Negative); Nitrite,Urine Negative (Negative); Protein,Urine Negative (Negative); RBC,Urine 5 /hpf (0-5); Specific Gravity,Urine 1.004 (1.001-1.035); Urobilinogen,Urine <2.0 mg/dL (<2.0); WBC,Urine 1 /hpf (0-5)
[2021-06-01 12:50] LABS: Basophils % (A) 0 %; Eosinophils % (A) 0 %; HCT 33.6 % (39.0-53.0); HGB 11.6 gm/dL (13.0-17.5); Lymphocytes # (A) 1.7 k/uL (1.0-4.8); Lymphocytes % (A) 16 %; MCH 30.5 pg (25.0-35.0); MCHC 34.5 g/dL (31.0-37.0); MCV 88.5 fL (80.0-100.0); Mean Platelet Volume 7.5; Monocytes # (A) 0.7 k/uL (0-1.0); Monocytes % (A) 7 %; Neutrophils # (A) 7.4 k/uL (1.3-7.7); Neutrophils % (A) 73 %; Platelet Count 249 k/uL (150-450); WBC 10.2 k/uL (3.8-10.6)
--- NOTE | 2021-06-01 14:30 | CT ---
CT CHEST FOR PULMONARY EMBOLISM. EXAMINATION TYPE: CT angio chest DATE OF EXAM: 06/01/2021 INDICATION: Shortness of breath on exertion. CT DLP: 715.5 mGycm, Automated exposure control for dose reduction was used. CONTRAST: Patient injected with 100 mL of Isovue 370. COMPARISON: None TECHNIQUE: CT of the chest is performed on a spiral scan at 2 mm thick sections. Study is performed with intravenous contrast timed for evaluation for pulmonary embolism. This will limit additional po rtions of the evaluation. 3-D MIP images reconstructed by the technologist are reviewed on the compu ter in the coronal and sagittal planes. FINDINGS: No persistent filling defects are evident to suggest an acute pulmonary embolism. No mediastinal or hilar adenopathy enlarged by CT criteria is evident. The ascending aorta diameter at the level of the main pulmonary artery is 4.0 cm. The main pulmonary artery diameter at the bifur cation is 3.1 cm. Lung windows are clear. r Limited CT sections are obtained the upper abdomen. There may be a cyst on the medial right lobe li kiera Hounsfield unit measurement of 27. Consider evaluation with ultrasound IMPRESSIONS: 1. No acute pulmonary embolism 2. Ascending thoracic aortic aneurysm or flow-limiting pulmonary artery measuring 4.0 cm. 3. Probable cyst adjacent to the ligamentum teres. This could be further evaluated with ultrasound.
[2021-06-01 15:13] VITALS: BP 118/68; PULSE 66; RESP 18; TEMP 98.2
--- NOTE | 2021-06-01 15:13 | XR ---
EXAMINATION TYPE: XR chest 2V DATE OF EXAM: 06/01/2021 COMPARISON: None INDICATION: Weakness cough TECHNIQUE: Single frontal view of the chest is obtained. FINDINGS: The heart size is normal. The pulmonary vasculature is normal. Very minimal increased lung markings are present diffusely. No focal consolidation is evident. Findin gs are nonspecific. Consider atypical pneumonia. IMPRESSION: 1. Minimal increased lung markings which are nonspecific. Consider atypical pneumonia.
== END 2021-06-01 15:16 | disposition home or self-care (01) ==
LOC: EC 11:47
DX: I71.2 Thoracic aortic aneurysm, without rupture (principal); J18.9 Pneumonia, unspecified organism; I10 Essential (primary) hypertension; E78.5 Hyperlipidemia, unspecified; K21.9 Gastro-esophageal reflux disease without esophagitis; M19.90 Unspecified osteoarthritis, unspecified site; Z79.82 Long term (current) use of aspirin; Z79.899 Other long term (current) drug therapy; Z85.828 Personal history of other malignant neoplasm of skin; Z87.891 Personal history of nicotine dependence
CPT/HCPCS: 36415; 93005; 80053; 83605; 83735; 84484; 85025; 85610; 85730; 81001; 87635; 71046; 71275; 99285; Q9967

== ENCOUNTER → 2021-06-29 | Outpatient (CLI) | payer MEDICARE ==
[2021-06-29 14:56] LABS: Appearance,BF Cloudy; Nucleated Cells, Body Fluid 945 /uL; RBC, Body Fluid 140 /uL
[2021-06-29 15:02] LABS: Mononuclear WBC,Body Fluid 21 %; Polynuclear WBC,Body Fluid 79 %; Total Cells Counted,Body Fluid 100
[2021-06-29 20:58] LABS: HCT 30.5 % (39.6-50.0); HGB 9.4 g/dL (13.0-17.0); MCH 27.9 pg (27.0-32.0); MCHC 30.8 g/dL (32.0-37.0); MCV 90.5 fL (80.0-97.0); Mean Platelet Volume 9.4 fL (9.5-12.2); Platelet Count 424 X 10*3/uL (140-440); RBC 3.37 X 10*6/uL (4.40-5.60); RDW 14.3 % (11.5-14.5); WBC 9.89 X 10*3/uL (4.50-10.00)
[2021-06-29 22:26] LABS: Erythrocyte Sedimentation Rate 106 mm/Hr (0-20)
[2021-06-30 01:12] LABS: C Reactive Protein 8.8 mg/dL (0.0-0.8); Uric Acid 4.8 mg/dL (3.7-8.7)
== END | disposition home or self-care (01) ==
LOC: LABWHC1 11:21
PROVIDERS: ATTEND Orthopaedic Surgery
DX: Z47.1 Aftercare following joint replacement surgery (principal); I10 Essential (primary) hypertension; M25.461 Effusion, right knee; Z85.9 Personal history of malignant neoplasm, unspecified; Z87.891 Personal history of nicotine dependence; Z68.30 Body mass index [BMI] 30.0-30.9, adult
CPT/HCPCS: 36415; 83520; 84550; 85027; 85652; 86140; 87070; 87075; 87205; 89050; 89060

== ENCOUNTER → 2021-07-20 | Outpatient (CLI) | payer MEDICARE | END | disposition home or self-care (01) | LOC: LABWHC1 12:21 | PROVIDERS: ATTEND Orthopaedic Surgery | DX: I10 Essential (primary) hypertension (principal); M25.561 Pain in right knee; M25.461 Effusion, right knee; Z47.1 Aftercare following joint replacement surgery; Z96.651 Presence of right artificial knee joint | CPT/HCPCS: 36415; 83520; 85379; 85652; 86140; 87070; 87075; 87205 ==

== ENCOUNTER → 2021-08-23 | Outpatient (CLI) | payer MEDICARE ==
[2021-08-23 20:28] LABS: Erythrocyte Sedimentation Rate 79 mm/Hr (0-20)
[2021-08-23 20:30] LABS: HCT 36.1 % (39.6-50.0); HGB 10.8 g/dL (13.0-17.0); MCH 27.1 pg (27.0-32.0); MCHC 29.9 g/dL (32.0-37.0); MCV 90.5 fL (80.0-97.0); Mean Platelet Volume 10.1 fL (9.5-12.2); Platelet Count 358 X 10*3/uL (140-440); RBC 3.99 X 10*6/uL (4.40-5.60); RDW 16.9 % (11.5-14.5); WBC 12.56 X 10*3/uL (4.50-10.00)
== END | disposition home or self-care (01) ==
LOC: LABWHC1 12:13
PROVIDERS: ATTEND Orthopaedic Surgery
DX: M25.561 Pain in right knee (principal); Z96.651 Presence of right artificial knee joint; Z47.1 Aftercare following joint replacement surgery; I10 Essential (primary) hypertension; Z85.9 Personal history of malignant neoplasm, unspecified; Z87.891 Personal history of nicotine dependence; M25.461 Effusion, right knee; Z68.30 Body mass index [BMI] 30.0-30.9, adult
CPT/HCPCS: 36415; 83520; 85027; 85379; 85652; 86140; 87070; 87075; 87205

== ENCOUNTER → 2022-02-14 | Outpatient (CLI) | payer MEDICARE ==
--- NOTE | 2022-02-14 19:21 | US ---
EXAMINATION TYPE: US abdomen complete DATE OF EXAM: 02/14/2022 COMPARISON: CT urogram 03/28/2016 CLINICAL HISTORY: R74.01. elevated labs, 25lb weight loss in 2 months EXAM MEASUREMENTS: Liver Length: 18.4 cm Gallbladder Wall: 0.9 cm CBD: 0.5 cm Spleen: 14.5 cm Right Kidney: 11.9 x 5.0 x 5.7 cm Left Kidney: 14.0 x 5.5 x 7.4 cm Pancreas: wnl Liver: Increased echogenicity to the liver parenchyma. Gallbladder: Nondistended without focal abnormality. Evidence for sonographic Cruz's sign: no CBD: wnl Spleen: enlarged Right Kidney: 2.2 x 1.8 x 1.7 cm simple cyst Left Kidney: 4.2 x 5.7 x 4.5 cm simple cyst seen which has peripheral calcifications on prior CT i n 2015. Upper IVC: wnl Abd Aorta: 3.3 x 3.2 x 3.7 cm AAA distally previously measuring up to 3.2 cm. The liver is homogenous with increased echotexture. The intrahepatic portion of the IVC and proximal abdominal aorta are within normal limits. There is no evidence of cholelithiasis. Common bile duct is unremarkable. The visualized portions of the pancreas are homogenous. The spleen is at the uppe r limits of normal for size.. Kidneys are symmetric and free of hydronephrosis. No renal lesions ar e seen. IMPRESSION: 1. No evidence of mass to explain patient's weight loss. 2. Hepatic steatosis. 3. Bilateral renal cysts some of which are seen in 2016 on the left with peripheral calcification. 4. Spleen is upper limits of normal for size. 5. Distal aortic fusiform aneurysm measuring up to 3.7 cm on today's exam which is larger than prior in 2016 where it measured up to 3.3 cm.
== END | disposition home or self-care (01) ==
LOC: RADUSWWP 12:32
PROVIDERS: ATTEND Family Medicine
DX: K76.0 Fatty (change of) liver, not elsewhere classified (principal); N28.1 Cyst of kidney, acquired; I71.9 Aortic aneurysm of unspecified site, without rupture
CPT/HCPCS: 76700

== ENCOUNTER → 2022-02-18 | Outpatient (CLI) | payer MEDICARE ==
[2022-02-18 14:53] LABS: Hepatitis B Core IgM Nonreactive (Nonreactive); Hepatitis B Surface Antigen Nonreactive (Nonreactive); Hepatitis C IgG Antibody Nonreactive (Nonreactive); Iron 57 ug/dL (65-175); Rheumatoid Factor, Qnt <10 IU/mL (0-15); Total Iron Binding Capacity 281 ug/dL (228-460)
[2022-02-19 19:12] LABS: Hepatitis A Antibody IgM Nonreactive (Nonreactive)
== END | disposition home or self-care (01) ==
LOC: LABWHC1 09:34
PROVIDERS: ATTEND Family Medicine
DX: R93.2 Abnormal findings on diagnostic imaging of liver and biliary tract (principal)
CPT/HCPCS: 36415; 80074; 82728; 83540; 83550; 85652; 86038; 86140; 86431

== ENCOUNTER → 2022-06-20 | Outpatient (CLI) | payer MEDICARE ==
--- NOTE | 2022-06-20 12:31 | CT ---
EXAMINATION TYPE: CT angio chest DATE OF EXAM: 06/20/2022 COMPARISON: 06/01/2021 HISTORY: AAA CT DLP: 885.00 mGycm CONTRAST: CTA thoracic aorta with 3-D reconstruction is performed and without and with IV Contrast, patient inj ected with 100 ml mL of Isovue 300. Contrast CTA of the thoracic aorta was performed from the lung apex through the upper abdomen. 3D re construction imaging obtained at a separate workstation. CT Chest: THORACIC AORTA: There is a stable 4 mm ascending thoracic aortic aneurysm. Mild atheromatous changes seen. There is no evidence for dissection or periaortic collection. LUNGS: The lungs are clear and free of infiltrate or atelectasis. No pulmonary nodule or mass is det ected. No pleural effusion or CT evidence of interstitial lung disease. MEDIASTINUM: No evidence for mediastinal hematoma. The heart is enlarged. Coronary artery calcific ations seen. No evidence for mediastinal mass or adenopathy. HILAR STRUCTURES: No evidence for mass. No hilar adenopathy is appreciated. OTHER: Stable hepatic cyst. Renal cystic changes are stable. IMPRESSION- 1.stable 4 mm ascending thoracic aortic aneurysm.
== END | disposition home or self-care (01) ==
LOC: RADCTMAIN 09:35
PROVIDERS: ATTEND Thoracic Surgery (Cardiothoracic Vascular Surgery)
DX: I71.2 Thoracic aortic aneurysm, without rupture (principal)
CPT/HCPCS: 82565; 84520; 71275; 36415; Q9967

== ENCOUNTER → 2022-07-18 | Outpatient (CLI) | payer MEDICARE ==
--- NOTE | 2022-07-19 08:23 | US ---
EXAMINATION TYPE: US groin RT DATE OF EXAM: 07/18/2022 COMPARISON: NONE CLINICAL HISTORY: K40.90 INGUINAL HERNIA. Right groin pain In the area of prior pain, right inguinal canal, a small fat containing hernia is present. Mainly se en while standing and with a valsalva maneuver, the hernia defect is approximately 0.64cm. No perist alsing bowel is seen within the hernia. No other abnormalities are visualized within the right groin . IMPRESSION: Fat Containing hernia.
== END | disposition home or self-care (01) ==
LOC: RADUSWWP 15:37
PROVIDERS: ATTEND Surgery Plastic and Reconstructive Surgery
DX: K40.90 Unilateral inguinal hernia, without obstruction or gangrene, not specified as recurrent (principal)

== ENCOUNTER → 2022-11-22 | Outpatient (CLI) | payer MEDICARE ==
--- NOTE | 2022-11-22 11:48 | CT ---
EXAMINATION TYPE: CT urogram wo/w con CT DLP: 3951 mGycm, Automated exposure control for dose reduction was used. DATE OF EXAM: 11/22/2022 11:04 AM COMPARISON: CT angiogram 03/28/2016. CLINICAL INDICATION:Male, 77 years old with history of R31.0; PHH, hematuria without pain TECHNIQUE: Urogram of the abdomen and pelvis was performed before and after the uneventful administration of 100 cc of Isovue-370 intravenously. Delayed imaging was obtained. Coronal and sagittal reformats were pe rformed. One or more CT dose reduction strategies were utilized during this examination. 2D and 3D re constructions are performed to assist visualization of the urinary tract on a separate workstation. FINDINGS: GENITOURINARY: RIGHT KIDNEY AND URETER: No calculi. No hydronephrosis or hydroureter. Stable right superior exophyti c 2.1 cm cyst. No solid enhancing renal mass. No urothelial lesions: no filling defect, dilation, str icture or wall thickening. LEFT KIDNEY AND URETER: The left lower pole 2 mm calculus No hydronephrosis or hydroureter. Stable lo bulated exophytic left cyst with peripheral calcification measuring up to 5.1 cm. No solid enhancing renal mass. No urothelial lesions: no filling defect, dilation, stricture or wall thickening. URINARY BLADDER: Not optimally distended. No gross evidence of calculi, mass or other lesions. REPRODUCTIVE: Prostate gland is enlarged measuring 5.9 cm in transverse dimension. ABDOMEN LIVER: Stable left hepatic lobe 2.6 cm cyst. GALLBLADDER AND BILE DUCTS: Unremarkable PANCREAS: Unremarkable. SPLEEN: Unremarkable. ADRENAL GLANDS: Unremarkable. STOMACH AND BOWEL: Small hiatal hernia.. The appendix is within normal limits. Distal colonic diverti culosis without evidence for acute diverticulitis. No evidence of bowel obstruction. PERITONEUM: No evidence of pneumoperitoneum, free fluid, or adenopathy. VASCULATURE: Atherosclerotic calcifications are present throughout the abdominal aorta and its branch es. Infrarenal abdominal aortic fusiform aneurysm measuring up to 3.6 cm in AP dimension and previous ly measured 3.3 cm. MUSCULOSKELETAL: No acute osseous abnormalities. Multilevel degenerative changes visualized spine. Gr andra 1 anterolisthesis of L4 on L5. Multilevel facet arthropathy. SOFT TISSUE/ABDOMINAL WALL: Small fat filled hiatal hernia. LOWER CHEST: The visualized lung bases are clear. Coronary arterial calcifications.. IMPRESSION: 1. No evidence of renal/urothelial neoplasm. 2. Stable bilateral renal cysts with a stable Bosniak 2 left renal cyst. 3. Nonobstructive left renal lower pole 2 mm calculus. 4. Colonic diverticulosis without evidence for acute diverticulitis. 5. Infrarenal abdominal aortic aneurysm measuring up to 3.6 cm, previously measured 3.3 cm in 2016.
== END | disposition home or self-care (01) ==
LOC: RADCTMAIN 08:59
PROVIDERS: ATTEND Urology
DX: I71.43 Infrarenal abdominal aortic aneurysm, without rupture (principal); N28.1 Cyst of kidney, acquired; N20.0 Calculus of kidney; K57.30 Diverticulosis of large intestine without perforation or abscess without bleeding; R31.0 Gross hematuria
CPT/HCPCS: 82565; 84520; 74178; 36415; 74400; Q9967

== ENCOUNTER → 2023-06-20 | Outpatient (CLI) | payer MEDICARE ==
[2023-06-20 16:10] LABS: African American GFR (CKD) 90 (>60 ml/min/1.73 sqM); Blood Urea Nitrogen 18 mg/dL (9-20); Non-African American GFR(CKD) 78 (>60 ml/min/1.73 sqM)
--- NOTE | 2023-06-20 16:53 | CT ---
EXAMINATION TYPE: CT angio chest DATE OF EXAM: 06/20/2023 COMPARISON: 06/20/2022 HISTORY: asymptomatic, R/O aneurysm CT DLP: 1335.1 mGycm CONTRAST: CTA thoracic aorta with 3-D reconstruction is performed and without and with IV Contrast, patient inj ected with 100 cc mL of Isovue 370. Contrast CTA of the thoracic aorta was performed from the lung apex through the upper abdomen. 3D re construction imaging obtained at a separate workstation. CT Chest: THORACIC AORTA: Ascending thoracic aortic aneurysm measuring 4.2 cm AP dimension unchanged from prior study. The aortic arch and descending thoracic aorta are of normal caliber. Mild atheromatous change s seen. There is no evidence for dissection or periaortic collection. LUNGS: The lungs are clear and free of infiltrate or atelectasis. No pulmonary nodule or mass is det ected. No pleural effusion or CT evidence of interstitial lung disease. MEDIASTINUM: No evidence for mediastinal hematoma. The heart is not enlarged. No evidence for med iastinal mass or adenopathy. HILAR STRUCTURES: No evidence for mass. No hilar adenopathy is appreciated. OTHER: No significant abnormality. IMPRESSION- 1.Ascending thoracic aortic aneurysm measuring 4.2 cm AP dimension unchanged from prior study.
== END | disposition home or self-care (01) ==
LOC: RADCTMAIN 14:42
PROVIDERS: ATTEND Thoracic Surgery (Cardiothoracic Vascular Surgery)
DX: I71.21 Aneurysm of the ascending aorta, without rupture (principal)
CPT/HCPCS: 82565; 84520; 71275; 36415; Q9967